=== PATIENT | female | born 1960 | race Caucasian/White ===

== ENCOUNTER 2017-10-10 18:34 | Emergency (ER) | payer BC, OTHER ==
[~2017-10-10] VITALS: Ht 170.2 cm; Wt 59.4 kg
[2017-10-10 18:36] VITALS: TEMP 36.8; Ht 170.2 cm; Wt 59.4 kg
[2017-10-10] MEDS ORDERED: SODIUM CHLORIDE 0.9% 1000ML 1,000 ML IV STA (18:52)
--- NOTE | 2017-10-10 18:54 | EMERGENCY ROOM VISIT NOTE ---
History Report prepared by Dimitri: Berhane Joe Under the Supervision of: Dr. Adolph Corley M.D. First contact with patient: 18:40 Chief Complaint: FLANK PAIN Stated Complaint: PAIN IN LOWER R SIDE,NAUSEA,CHILLS History of Present Illness The patient is a 57 year old female who presents to the Emergency Room with complaints of constantly present, worsening, severe right sided abdominal pain beginning this morning. The patient notes experiencing minor pain in the center of her stomach prior to going on her regular run this morning. She reports that the pain worsened following her run and radiated into the lower right quadrant of her abdomen as well as into her lower back. The patient states that she felt an urgent need to produce a bowel movement following her run. She notes producing 2 bowel movement; the first being normal and the second being very loose. The patient denies seeing any blood in either of her bowel movements. The patient also notes developing chills following her run which she has been experiencing throughout the day today. The patient denies any fevers, urinary symptoms, falls, dark or bloody urine, other medical problems or surgeries, history of kidney stones, chest pain, shortness of breath, headache, pain radiating down her legs, rash, or history of gynecological problems. The patient notes that she has not been eating or drinking regularly today. She notes that her pain is relived by lying down and heat, and worsened by standing up. The patient reports taking oral contraceptive until last June, and states that no longer experiences her regular period. She denies smoking, and notes social alcohol usage. Source of History: patient Onset: This morning Position: abdomen (RLQ), back (lower) Symptom Intensity: severe Timing: constant, worsening Modifying Factors (Worsening): movement (standing) Modifying Factors (Relieving): rest, heat Associated Symptoms: + chills, + back pain (lower (minor)), + diarrhea (1 episode), + urinary symptoms, No fevers, No headache, No chest pain, No SOB, No rash Note: Denies: Falls, dark or bloody urine, other medical problems or surgeries, history of kidney stones, pain radiating down her legs, or any history of gynecological problems. Review of Systems See HPI for pertinent positives & negatives. A total of 10 systems reviewed and were otherwise negative. Past Medical & Surgical Old medical records were reviewed. Nurse's notes were reviewed and I agree with. Family History Patient reports no known family medical history. Social History Smoking Status: Never Smoker Smokeless Tobacco Use: No (social) Alcohol Use: occasionally Drug Use: none Marital Status: Housing Status: lives with significant other Occupation Status: employed Current/Historical Medications Scheduled Black Cohosh (Cimicifuga Racem (Black Cohosh), 1 TABS PO DAILY Sumatriptan Succinate (Imitrex), 100 MG PO PRN Allergies Coded Allergies: No Known Allergies (Unverified , 10/10/17) Physical Exam Vital Signs Date Time Temp Pulse Resp B/P (MAP) Pulse Ox O2 Delivery O2 Flow Rate FiO2 10/10/17 22:09 99 18 143/82 97 10/10/17 21:49 99 18 143/82 97 Room Air 10/10/17 20:24 93 18 169/100 98 Room Air 10/10/17 18:36 36.8 119 18 163/86 95 Room Air Physical Exam General: Non-ill appearing middle aged female in no acute distress. HEENT: Normal cephalic atraumatic. Pupils are equal round and reactive to light. Extraocular movements are intact. Oropharynx is pink with moist mucous membranes. No swelling of the mouth lips or tongue. Neck: Supple with a midline trachea. No meningeal signs or stiffness, no JVD or bruits. No Stridor. Chest: Clear to auscultation bilaterally. No wheezes or rhonchi. No increased work of breathing. Heart: regular rate and rhythm. Abdomen: Soft nontender, nondistended without rebound guarding or rigidity. Mildly tender to RLQ. Extremities: No cyanosis clubbing or edema. No calf tenderness or assymetry Spine/Back. Non tender to palpation. No CVA tenderness Skin: Good turgor without rashes. Neurologic exam: Cranial nerves two through 12 are intact. Motor and sensation are intact and symmetrical throughout. Medical Decision & Procedures ER Provider Diagnostic Interpretation: Radiology results as stated below per my review and radiologist interpretation: ABD/PELVIS IV AND ORAL CONT CT DOSE: 282.40 mGy.cm HISTORY: Flank pain eval for appy TECHNIQUE: Multiaxial CT images of the abdomen and pelvis were performed following the use of intravenous and oral contrast. A dose lowering technique was utilized adhering to the principles of ALARA. COMPARISON STUDY: None. FINDINGS: Lung bases are clear. Liver spleen and pancreas appear unremarkable. Several small renal cortical cysts bilaterally. No evidence for renal hydronephrosis. Moderate wall thickening of the proximal to mid descending colon as well as distal transverse colon. This consistent with a nonspecific colitis. No evidence for abscess collection or obstruction. No evidence for pneumatosis. Normal appendix. Slightly bulky uterus potentially indicating small fibroids. Bladder is midline. No free fluid within the pelvic cul-de-sac. IMPRESSION: 1. Mild nonspecific colitis involving the proximal to mid descending colon. 2. Normal appendix. 3. No evidence for abscess collection or obstruction. 4. Probable fibroid uterus. The above report was generated using voice recognition software. It may contain grammatical, syntax or spelling errors. Electronically signed by: Wilberto Fowler M.D. 10/10/2017 9:39 PM Dictated Date/Time: 10/10/2017 9:36 PM Laboratory Results 10/10/17 19:20 Red Blood Count 4.18, Mean Corpuscular Volume 92.6, Mean Corpuscular Hemoglobin 32.3, Mean Corpuscular Hemoglobin Concent 34.9, Mean Platelet Volume 11.2, Neutrophils (%) (Auto) 76.3, Lymphocytes (%) (Auto) 16.6, Monocytes (%) (Auto) 6.7, Eosinophils (%) (Auto) 0.0, Basophils (%) (Auto) 0.2, Neutrophils # (Auto) 7.84, Lymphocytes # (Auto) 1.70, Monocytes # (Auto) 0.69, Eosinophils # (Auto) 0.00, Basophils # (Auto) 0.02 10/10/17 19:20 Test 10/10/17 19:20 White Blood Count 10.27 K/uL (4.8-10.8) Red Blood Count 4.18 M/uL (4.2-5.4) Hemoglobin 13.5 g/dL (12.0-16.0) Hematocrit 38.7 % (37-47) Mean Corpuscular Volume 92.6 fL (80-100) Mean Corpuscular Hemoglobin 32.3 pg (25-34) Mean Corpuscular Hemoglobin Concent 34.9 g/dl (32-36) Platelet Count 197 K/uL (130-400) Mean Platelet Volume 11.2 fL (7.4-10.4) Neutrophils (%) (Auto) 76.3 % Lymphocytes (%) (Auto) 16.6 % Monocytes (%) (Auto) 6.7 % Eosinophils (%) (Auto) 0.0 % Basophils (%) (Auto) 0.2 % Neutrophils # (Auto) 7.84 K/uL (1.4-6.5) Lymphocytes # (Auto) 1.70 K/uL (1.2-3.4) Monocytes # (Auto) 0.69 K/uL (0.11-0.59) Eosinophils # (Auto) 0.00 K/uL (0-0.5) Basophils # (Auto) 0.02 K/uL (0-0.2) RDW Standard Deviation 45.4 fL (36.4-46.3) RDW Coefficient of Variation 13.4 % (11.5-14.5) Immature Granulocyte % (Auto) 0.2 % Immature Granulocyte # (Auto) 0.02 K/uL (0.00-0.02) Urine Color DK YELLOW Urine Appearance CLEAR (CLEAR) Urine pH 5.5 (4.5-7.5) Urine Specific [place] 1.022 (1.000-1.030) Urine Protein NEG (NEG) Urine Glucose (UA) NEG (NEG) Urine Ketones TRACE (NEG) Urine Occult Blood NEG (NEG) Urine Nitrite NEG (NEG) Urine Bilirubin NEG (NEG) Urine Urobilinogen NEG (NEG) Urine Leukocyte Esterase MODERATE (NEG) Urine WBC (Auto) 5-10 /hpf (0-5) Urine RBC (Auto) 0-4 /hpf (0-4) Urine Hyaline Casts (Auto) 0 /lpf (0-5) Urine Epithelial Cells (Auto) >30 /lpf (0-5) Urine Bacteria (Auto) 1+ (NEG) Urine Renal Epithelial Cells /lpf (0-5) Urine Mucus PRESENT (NONE PRSENT) Anion Gap 8.0 mmol/L (3-11) Est Creatinine Clear Calc Drug Dose 51.2 ml/min Estimated GFR () 61.6 Estimated GFR (Non- 53.1 BUN/Creatinine Ratio 15.1 (10-20) Calcium Level 9.1 mg/dl (8.5-10.1) Total Bilirubin 0.6 mg/dl (0.2-1) Direct Bilirubin 0.2 mg/dl (0-0.2) Aspartate Amino Transf (AST/SGOT) 40 U/L (15-37) Alanine Aminotransferase (ALT/SGPT) 75 U/L (12-78) Alkaline Phosphatase 115 U/L (45-117) Total Protein 7.6 gm/dl (6.4-8.2) Albumin 4.0 gm/dl (3.4-5.0) Lipase 92 U/L (73-393) Laboratory studies as stated above per my review. Medications Administered Medications (Trade) Dose Ordered Sig/Tammy Route Start Time Stop Time Status Last Admin Dose Admin Sodium Chloride 1,000 ml @ 999 mls/hr Q1H1M STAT IV 10/10/17 18:52 10/10/17 19:52 DC 10/10/17 19:26 999 MLS/HR Ketorolac Tromethamine (Toradol Inj) 30 mg NOW STAT IV 10/10/17 20:53 10/10/17 20:54 DC 10/10/17 21:13 30 MG ED Course 1839: Past medical records reviewed. The patient was evaluated in room A02, and a complete history and physical examination were performed. 1851: Ordered Sodium Chloride 1000 ml @ 999 mls/hr IV 1916: I reevaluated the patient. She is doing well and drinking her oral contrast fluid. She is started on an IV. 2052: Ordered Ketorolac Tromethamine 30 mg IV 2057: I reevaluated the patient. She is resting comfortably and being given pain medications. 2203: Upon reevaluation, the patient is resting comfortably. I discussed the results and treatment plan with her. She verbalized agreement of the treatment plan. The patient was discharged home. Medical Decision Differential Diagnoses Include: Appendicitis, Kidney Stones, UTI, Musculoskeletal, Ovarian Cysts, Electrolyte or Metabolic Abnormality. This patient comes in as described above. She has been having abdominal pain which has gotten worse is most in the right lower abdomen. She looks well on exam she is afebrile. She is mildly tender but has no peritonitis. IV access established and she was given Toradol 30 Sweeney grams IV. She has no white count or fever to suggest infection. She has no acute electrolyte or metabolic abnormalities. She has nothing to suggest UTI. She has nothing to his liver, gallbladder, pancreas disease. I did a CAT scan after discussing the risk and benefits. Given her slender build, I used both oral and IV contrast. There is no evidence to suggest appendicitis there is a nonspecific mild colitis. At this point, this is mostly likely just supportive care/comfort measures. I told her to rest and drink plenty of fluids use [id number] ibuprofen or Tylenol but do not exceed the [id number] recommended dosages. Return if increasing pain, worsening of symptoms, fever chills, any new problems or concerns a follow-up with her regular doctor Thursday for recheck. The patient and her were happy with the plan and she was discharged to home. Blood Pressure Screening Patient's blood pressure: Elevated blood pressure Blood pressure disposition: Elevated BP felt to be situational Impression Primary Impression: RLQ abdominal pain Additional Impression: Colitis Scribe Attestation The scribe's documentation has been prepared under my direction and personally reviewed by me in its entirety. I confirm that the note above accurately reflects all work, treatment, procedures, and medical decision making performed by me. Departure Information Dispostion Home / Self-Care Referrals No Doctor, Assigned (PCP) Forms HOME CARE DOCUMENTATION FORM, IMPORTANT VISIT INFORMATION Patient Instructions My [facility] Additional Instructions Rest. Drink plenty of fluids. Mild diet. Use [id number] Tylenol and/or ibuprofen. Do not exceed [id number] recommended dosages Return if: Fever, increasing pain, worsening of symptoms, not tolerating fluids , any new problems or concerns Problem Qualifiers
[2017-10-10 19:35] LABS: BASO % 0.2 %; BASO ABS # 0.02 K/uL (0-0.2); HEMATOCRIT 38.7 % (37-47); HEMOGLOBIN 13.5 g/dL (12.0-16.0); IG# 0.02 K/uL (0.00-0.02); LYMPH % 16.6 %; MEAN CELL VOLUME 92.6 fL (80-100); MEAN CORPUSCULAR HEMOGLOBIN 32.3 pg (25-34); MEAN CORPUSCULAR HGB CONC 34.9 g/dl (32-36); MEAN PLATELET VOLUME 11.2 fL (7.4-10.4); MONO % 6.7 %; MONO ABS # 0.69 K/uL (0.11-0.59); NEUT % 76.3 %; NEUT ABS # 7.84 K/uL (1.4-6.5); PLATELET COUNT 197 K/uL (130-400); RED CELL DISTRIBUTION WIDTH CV 13.4 % (11.5-14.5); RED CELL DISTRIBUTION WIDTH SD 45.4 fL (36.4-46.3); WHITE BLOOD COUNT 10.27 K/uL (4.8-10.8)
[2017-10-10] MEDS ORDERED: SUMA100T16 PO (19:38)
[2017-10-10] MEDS ORDERED: BLAC1TAB PO (19:40)
[2017-10-10 19:55] LABS: CALCIUM 9.1 mg/dl (8.5-10.1); CREATININE 1.15 mg/dl (0.60-1.20); POTASSIUM 3.8 mmol/L (3.5-5.1)
[2017-10-10 19:58] LABS: TOTAL PROTEIN 7.6 gm/dl (6.4-8.2)
[2017-10-10] MEDS ORDERED: KETOROLAC TROMETHAMINE 30 MG/ML VIAL IV STA (20:53)
[2017-10-10] MEDS ORDERED: OPTIRAY 320 IV PRN (21:30)
--- NOTE | 2017-10-10 21:41 | DIAGNOSTIC IMAGING REPORT ---
ABD/PELVIS IV AND ORAL CONT CT DOSE: 282.40 mGy.cm HISTORY: Flank pain eval for appy TECHNIQUE: Multiaxial CT images of the abdomen and pelvis were performed following the use of intravenous and oral contrast. A dose lowering technique was utilized adhering to the principles of ALARA. COMPARISON STUDY: None. FINDINGS: Lung bases are clear. Liver spleen and pancreas appear unremarkable. Several small renal cortical cysts bilaterally. No evidence for renal hydronephrosis. Moderate wall thickening of the proximal to mid descending colon as well as distal transverse colon. This consistent with a nonspecific colitis. No evidence for abscess collection or obstruction. No evidence for pneumatosis. Normal appendix. Slightly bulky uterus potentially indicating small fibroids. Bladder is midline. No free fluid within the pelvic cul-de-sac. IMPRESSION: 1. Mild nonspecific colitis involving the proximal to mid descending colon. 2. Normal appendix. 3. No evidence for abscess collection or obstruction. 4. Probable fibroid uterus. The above report was generated using voice recognition software. It may contain grammatical, syntax or spelling errors. Electronically signed by: Wilberto Fowler M.D. 10/10/2017 9:39 PM Dictated Date/Time: 10/10/2017 9:36 PM
[2017-10-10 22:09] VITALS: BP 143/82; PULSE 99; O2SAT 97
== END 2017-10-10 22:10 | disposition home or self-care (01) ==
LOC: C.EDB 18:35 → C.EDA 22:10
DX: K52.9 Noninfective gastroenteritis and colitis, unspecified (principal); R68.83 Chills (without fever)